=== PATIENT | male | born 1995 | race American Indian/Alaskan Native ===

== ENCOUNTER 2023-03-02 09:48 | Emergency (ER) | payer OTHER, SELFPAY ==
[~2023-03-02] VITALS: Ht 165.1 cm; Wt 63.5 kg
[2023-03-02 12:07] VITALS: BP 120/81; TEMP 98.9; O2SAT 98
== END 2023-03-02 12:06 | disposition home or self-care (01) ==
LOC: M ED 09:48
DX: S43.51XA Sprain of right acromioclavicular joint, initial encounter (principal); W10.9XXA Fall (on) (from) unspecified stairs and steps, initial encounter; F17.200 Nicotine dependence, unspecified, uncomplicated